=== PATIENT | male | born 1995 | race African-American/Black ===

== ENCOUNTER 2019-11-19 18:37 | Inpatient (IN) ==
[~2019-11-19 18:37] MED LIST: ETOMIDATE 2 MG/ML 20 ML VIAL IV ONE; NALOXONE HCL 0.4 MG/1 ML VIAL/CARP ONE; RAPID SEQUENCE INDUCTION BAG ONE; ROCURONIUM BROMIDE 10 MG/ML 5 ML VIAL IV ONE
[2019-11-19] MEDS ORDERED: NALOXONE HCL 0.4 MG/1 ML VIAL/CARP IV ONE (18:40)
[2019-11-19] MEDS ORDERED: ETOMIDATE 2 MG/ML 20 ML VIAL IV ONE (18:51)
[2019-11-19] MEDS ORDERED: PROPOFOL IV EMULSION 10 MG/ML 100 ML VIAL IV ONE (18:51)
[2019-11-19] MEDS ORDERED: ROCURONIUM BROMIDE 10 MG/ML 10 ML VIAL IV STA (18:51)
[2019-11-19] MEDS ORDERED: STAT IV Infusion **Titration per Protocol STA ×2 (18:51→22:50)
[2019-11-19] MEDS ORDERED: SODIUM CHLORIDE 0.9% 1000ML 1,000 ML IV SCH (19:00)
[2019-11-19 19:02] LABS: Basophils # (auto) 0.01 K/uL (0-0.2); Basophils % (auto) 0.1 %; Eosinophils # (auto) 0.01 K/uL (0-0.5); Eosinophils % (auto) 0.1 %; Hematocrit (blood only) 43.1 % (42-52); Hemoglobin 14.6 g/dL (14.0-18.0); Immature Granulocytes # (auto) 0.03 K/uL (0.00-0.02); Immature Granulocytes % (auto) 0.4 %; Lymphocytes # (auto) 1.15 K/uL (1.2-3.4); Lymphocytes % (auto) 13.6 %; Mean Corpuscular Hemoglobin 28.6 pg (25-34); Mean Corpuscular Hgb Conc 33.9 g/dL (32-36); Mean Corpuscular Volume 84.5 fL (80-100); Mean Platelet Volume 11.1 fL (7.4-10.4); Monocytes # (auto) 1.18 K/uL (0.11-0.59); Monocytes % (auto) 13.9 %; Neutrophils # (auto) 6.09 K/uL (1.4-6.5); Neutrophils % (auto) 71.9 %; Platelet Count 192 K/uL (130-400); White Blood Count 8.47 K/uL (4.8-10.8)
[2019-11-19] MEDS: propofoL 1,000 MG/100 ML VIAL IV SCH (19:05)
--- NOTE | 2019-11-19 19:05 | XRay Report ---
XR chest 1V portable CLINICAL HISTORY: post intubation tube position COMPARISON STUDY: No previous studies for comparison. FINDINGS: Endotracheal tube in position. This is 3.8 cm above the libia. Lungs are clear. Diaphragms are smooth. IMPRESSION: 1. Endotracheal tube 3.8 cm above the libia. 2. Lungs are clear. ACT 112: Negative or not required by law. The above report was generated using voice recognition software. It may contain grammatical, syntax or spelling errors. Electronically signed by: Harshil Arora M.D. 11/19/2019 7:03 PM
[2019-11-19 19:25] LABS: Alanine Aminotransferase 82 U/L (12-78); Albumin Level 3.9 gm/dl (3.4-5.0); Aspartate Aminotransferase 33 U/L (15-37); BUN Creatinine Ratio 10.3 (10-20); Blood Urea Nitrogen 11 mg/dl (7-18); Calcium 9.2 mg/dl (8.5-10.1); Carbon Dioxide 29 mmol/L (21-32); Chloride 100 mmol/L (98-107); Est GFR (African American) 112.5; Est GFR (Non-African American) 97.1; Glucose 114 mg/dl (70-99); Magnesium 1.8 mg/dl (1.8-2.4); Potassium 3.4 mmol/L (3.5-5.1); Sodium 135 mmol/L (136-145)
[2019-11-19 19:30] LABS: Albumin Globulin Ratio 0.9 (0.9-2); Alkaline Phosphatase 72 U/L (45-117); Bilirubin,Total 1.1 mg/dl (0.2-1); Globulin 4.4 gm/dl (2.5-4.0); Total Protein 8.3 gm/dl (6.4-8.2); Troponin I < 0.015 ng/ml (0-0.045)
[2019-11-19 19:38] LABS: Acetaminophen < 2 ug/ml (10-30)
[2019-11-19 19:39] LABS: Salicylate < 1.7 mg/dl (2.8-20)
[2019-11-19] MEDS ORDERED: POTASSIUM CHLORIDE / WTR 10 MEQ/100 ML PLCT IV ONE ×2 (19:42→22:50)
[2019-11-19] MEDS ORDERED: SODIUM CHLORIDE 0.9% 500 ML IV SCH (19:45)
[2019-11-19 19:47] LABS: Appearance Urine Clear (Clear); Bilirubin Urine Negative (Negative); Blood Urine Negative (Negative); Color Urine Yellow; Glucose Urine UA Negative (Negative); Ketones Urine Negative (Negative); Leukocyte Esterase Urine Negative (Negative); Nitrite Urine Negative (Negative); Protein Urine Negative (Negative); Specific Gravity Urine 1.011 (1.000-1.030); Urobilinogen Urine Negative (Negative); pH Urine 5.5 (4.5-7.5)
--- NOTE | 2019-11-19 19:59 | CT Scan Report ---
CT head/brain wo con CT DOSE: 884.08 mGy.cm HISTORY: Mental status change AMS, likely overdose TECHNIQUE: Multiaxial CT images of the head were performed without the use of intravenous contrast. A dose lowering technique was utilized adhering to the principles of ALARA. Comparison: None. Findings: Moderate edematous changes of the posterior oropharynx. The calvarium and skull base are in tact. The ventricles and sulci are within normal limits. There is no mass, hematoma, midline shift, o r acute infarct. No evidence for acute cranial hemorrhage. No evidence for midline shift. Impression: 1. No acute intracranial abnormality. 2. Soft tissue edematous change of the posterior oropharynx presumably secondary to the patient's int ubation procedure. ACT 112: Negative or not required by law. The above report was generated using voice recognition software. It may contain grammatical, syntax or spelling errors. Electronically signed by: Harshil Arora M.D. 11/19/2019 7:58 PM
[2019-11-19 20:15] LABS: Amphetamines+Metham, Urine Neg (Neg); Barbiturates, Urine Neg (Neg); Benzodiazepine, Urine Neg (Neg); Cocaine, Urine Neg (Neg); MDMA (Ecstacy), Urine Neg (Neg); Methadone, Urine Neg (Neg); Opiate, Urine Neg (Neg); Phencyclidine, Urine Neg (Neg)
[2019-11-19] MEDS ORDERED: AMPICILLIN/SULBACTAM SOD 3,000 MG in 0.9 % SODIUM CHLORIDE 100 ML IV STA (21:02)
[2019-11-19 21:09] LABS: Thyroid Stimulating Hormone 0.686 uIu/ml (0.300-4.500)
[2019-11-19 21:17] LABS: Base Excess ABG 1.4 mEq/L (-9-1.8); HCO3 ABG 29 mmol/L (19-24); Oxygen Saturation ABG 96.3 % (90-95); PCO2 ABG 61 mmHg (35-46); PO2 ABG 91 mmHg (80-95)
[2019-11-19 22:05] LABS: Allen Test Pos (Pos)
--- NOTE | 2019-11-19 22:15 | History & Physical Report ---
Date of Service November 19, 2019 Assessment & Plan (1) Acute hypoxemic respiratory failure: Secondary to drug overdose (unknown substance and intent) Bilateral rhonchi, possible aspiration pneumonitis Hypokalemia secondary to emesis Ongoing tobacco abuse ICU Baseline ABG Vent management Unasyn for possible aspiration pneumonitis, nebs RTC Replace potassium Query patient on intent of drug ingestion once extubated DVT prophylaxis. Lovenox subcu Full code Total critical care time was 35 minutes. Text document was generated using [employer] voice recognition software. It may contain grammatical or spelling errors. Kindly contact undersigned for clarification of any documentation item in question. History of Present Illness Chief Complaint: drug overdose Primary Care Provider: [facility] History obtained from ER provider and records. Limited history from patient secondary to intubated state. Medical history significant for ongoing tobacco abuse. This afternoon patient swallowed a bag of [facility] drug in [facility]. Patient subsequently noted to have emesis and was noted to be lethargic. No response to Narcan doses given by EMS and at the ER. Patient subsequently intubated at the ER for depressed respiration. Medical History as above Surgical History : I&D of left groin abscess Family History : Hypertension Personal/Social history : Ongoing tobacco abuse, current [facility] inmate Allergies Allergy/AdvReac Type Severity Reaction Status Date / Time No Known Allergies Allergy Verified 11/19/19 19:36 Home Medications Home Medications Medication Instructions Recorded Confirmed Type No Known Home Medications 11/19/19 11/19/19 History Past Med/Surg History Medical History No pertinent past medical history Surgical History No pertinent past surgical history Social History Preferred Language: Zimbabwean Communication Ability: Unable Freight Solicitor Required: No Beliefs That Will Affect Care: None Current Living Situation: Other Current Living Situation Comment: [facility] Other Information That Helps Us Care for You: No Feels Safe at Home: Yes Safety Concerns: Feels Safe At This Time Smoking Status: Unknown if ever smoked Review of Systems Review of Systems: Could not be reliably obtained Physical Exam Physical Exam: GENERAL: Obtunded , no respiratory distress SKIN: Normal color, warm HEENT: Mccleary palpebral conjunctivae, no ptosis, dry buccal mucosa, ET in place NECK : Supple, no tenderness CHEST : Bilateral rhonchi , no tenderness HEART : RRR, no obvious murmurs ABDOMEN: Some distention, nontender EXTREMITIES : No LE swelling/tenderness, no other conspicuous deformities noted NEUROLOGIC : Obtunded , no facial asymmetry, no other gross focality Results & Data Vital Signs (Past 12 Hours) Vital Signs Pulse Pulse Resp BP BP Pulse Ox 11/19/19 20:30 80 106/49 L 98 11/19/19 20:25 85 110/62 98 11/19/19 20:20 87 113/57 L 98 11/19/19 20:15 88 118/58 L 98 11/19/19 20:10 88 108/56 L 97 11/19/19 20:05 96 H 110/55 L 97 11/19/19 20:00 96 H 104/57 L 97 11/19/19 19:56 100 H 123/59 L 98 11/19/19 19:52 107 H 15 98 11/19/19 19:35 95 H 103/55 L 95 11/19/19 19:30 102 H 110/52 L 95 11/19/19 19:25 104 H 102/47 L 95 11/19/19 19:20 110 H 106/44 L 95 11/19/19 19:15 119 H 102/50 L 95 11/19/19 19:10 126 H 114/58 L 95 11/19/19 19:05 135 H 131/69 96 11/19/19 19:03 97 11/19/19 19:00 138 H 131/69 96 11/19/19 18:55 141 H 15 120/84 97 11/19/19 18:50 142 H 133/62 100 11/19/19 18:45 100 H 120 H 140/59 L 140/59 L 100 11/19/19 18:41 112 H 106/51 L 100 11/19/19 18:40 98 H 8 L 106/51 L [address] head: 1. No acute intracranial abnormality. 2. Soft tissue edematous change of the posterior oropharynx presumably secondary to the patient's intubation procedure. Chest x-ray : 1. Endotracheal tube 3.8 cm above the libia. 2. Lungs are clear. EKG as per my interpretation : Rate 115, sinus tachycardia, normal axis, incomplete RBBB, no ischemia
[2019-11-19] MEDS ORDERED: PROMETHAZINE HCL 12.5 MG in SODIUM CHLORIDE 0.9% 50 ML IV PRN (22:50)
[2019-11-19] MEDS ORDERED: ACETAMINOPHEN 1,000 MG/100 ML VIAL IV PRN (22:50)
[2019-11-19] MEDS ORDERED: propofoL 1,000 MG/100 ML VIAL IV SCH (22:50)
[2019-11-19] MEDS ORDERED: ICU PROTOCOL FOR HYPERGLYCEMIA PRN (22:50)
--- NOTE | 2019-11-19 22:59 | Critical Care Consultation ---
Date of Consultation November 19, 2019 Assessment & Plan (1) Admitted to intensive care unit: Reason Critically Ill: Unknown ingestion of substance resulting in obtunded state and respiratory failure requiring emergent endotracheal intubation. NEURO - * CAM ICU: POSITIVE * Sedation -propofol * Pain -fentanyl PRN CARDIAC/VASCULAR - * No history of cardiovascular disease. * Hemodynamically stable at this time. * EKG: Sinus tachycardia at [address]/T wave abnormalities noted. QTc 466 ms. * Monitor on telemetry. RESPIRATORY - * Acute respiratory failure with hypoxia: * Secondary to obtunded state from unknown substance injection. * Saturating well on minimal ventilator settings status post emergent endotracheal intubation. * Wean settings as tolerated. * A.m. ABG. * Aim for early extubation. GI/NUTRITION - * N.p.o. at this time. * OG tube in place. * Prophylaxis: Famotidine RENAL/LYTES - * Hypokalemia. Currently being replaced. * IVF: Normosol at 80 mL's per hour - * Nguyen in place - Strict I&Os. ENDO - * No history of diabetes or thyroid disease. * BSGs per unit protocol. ISS --> gtt per unit policy. HEME - * Stable H&H. ID - * Covered for aspiration pneumonia in the setting of vomiting and subsequent intubation. * Continue for now. LINES/IV ACCESS - * PIVs x2 * Nguyen * ET Tube DVT PROPHYLAXIS - * Lovenox * SCDs I have personally spent 35 minutes of critical care time in the direct management of this patient. This is a life/limb threatening event. This includes time spent evaluating patient, direct bedside care, chart review, placing orders, interpretation of diagnostic studies, discussion with consultants, patient, and family members, as well as other required patient management activities. This time is exclusive of all separately billable procedures, and teaching time and separate from and in addition to any other critical care service time. Thank you for allowing us to participate in the care of this patient. Please refer to my attending physician's documentation for any further recommendations. (2) Overdose: (3) Altered mental status: (4) Hypokalemia: (5) Acute hypoxemic respiratory failure: Supervising Physician Co-Signing Physician Notes I have personally evaluated and examined this patient. I agree with assessment and plan of Mario Sutton PA-C. During my evaluation the patient was alert and oriented and able to follow commands, he was promptly extubated. He was alert and oriented for 3 hours status post extubation. I discussed the case with the [facility] hospitalist and he is stable for discharge back to his facility. Tox screen was negative, if he ingested bath salts he is typically would not show up on drug screen, his vital signs are within normal limits which are reassuring that he is over the acute intoxication phase. I have personally spent 45 minutes of critical care time in the direct management of this patient. This is a life/limb threatening event. This includes time spent evaluating patient, direct bedside care, chart review, placing orders, interpretation of diagnostic studies, discussion with consultants, patient, and/or family members regarding treatment decisions, as well as other required patient management activities. This time is exclusive of all separately billable procedures, and teaching time and separate from and in addition to any other critical care service time. History of Present Illness Attending Physician: Amanda Bean DO History of Present Illness 24-year-old incarcerated -[place] male presenting after ingestion of unknown substance resulting in altered mental status, obtunded state, and snoring respirations requiring emergent endotracheal intubation in the emergency department. There was reports that the patient may have swallowed a "bag" of an unknown substance. Narcan was administered at the halfway facility without success. After intubation, the patient remained sedated with propofol and is awake and alert exam. History of present illness limited secondary to current state of intubation with sedation. Allergies Allergy/AdvReac Type Severity Reaction Status Date / Time No Known Allergies Allergy Verified 11/19/19 19:36 Home Medications Home Medications Medication Instructions Recorded Confirmed Type No Known Home Medications 11/19/19 11/19/19 History Patient History Medical History No pertinent past medical history Surgical History No pertinent past surgical history Social History Preferred Language: Korean Communication Ability: Unable Videotape Recording Engineer Required: No Beliefs That Will Affect Care: None Current Living Situation: Other Current Living Situation Comment: [facility] facility[facility] Other Information That Helps Us Care for You: No Feels Safe at Home: Yes Safety Concerns: Feels Safe At This Time Smoking Status: Unknown if ever smoked Review of Systems Review of Systems: Unobtainable due to endotracheal tube and Unobtainable due to reduced consciousness Physical Exam Physical Exam: VITAL SIGNS - Vital signs and nursing notes were reviewed. GENERAL - 24-year-old male appearing his stated age who is in no acute distress. Intubated and sedated. SKIN - Without rashes. HEAD - NC/AT. EYES - PERRL with EOMI bilaterally. Sclera anicteric. EARS - No deformities of external structures noted on gross examination bilaterally. NOSE - Midline and without cyanosis. No epistaxis or purulent drainage noted. MOUTH/OROPHARYNX - ET Tube in place. Without perioral cyanosis. Buccal mucosa pink and moist and without leukoplakia. NECK - Neck with FROM. Supple to palpation. No nuchal rigidity. LUNGS - Chest wall symmetric without accessory muscle use, intercostals retractions, or central cyanosis. Normal vesicular breath sounds CTA B/L. No wheezes, rales, or rhonchi appreciated. CARDIAC - RRR with S1/S2. No murmur, rubs, or gallops appreciated. ABDOMEN - Abdominal contour flat without pulsations or visible masses. BS normoactive all four quadrants. No tenderness, palpable masses, hepatosplenomegaly, or ascites noted. EXTREMITIES - No clubbing or peripheral cyanosis. No pretibial edema present. +3/5 radial, posterior tibial, and dorsalis pedis pulses palpated throughout. +5/5 strength noted in UE/LE bilaterally. NEUROLOGIC -no focal neurological deficits. Moves all extremities independently. Withdraws from painful stimuli. Awakens and nods yes/no appropriately. Results & Data ([facility]) Vital Signs (Past 12 Hours) Vital Signs Pulse Pulse Resp BP BP Pulse Ox 11/19/19 22:05 69 14 113/61 98 11/19/19 21:50 70 111/59 L 98 11/19/19 21:45 79 116/64 98 11/19/19 21:40 73 118/63 98 11/19/19 21:35 75 119/68 99 11/19/19 21:25 82 126/65 99 11/19/19 21:20 76 122/72 98 11/19/19 21:10 82 124/73 98 11/19/19 21:00 77 164/102 H 92 11/19/19 20:50 79 106/54 L 98 11/19/19 20:45 82 103/55 L 98 11/19/19 20:40 82 109/51 L 98 11/19/19 20:35 83 109/57 L 97 11/19/19 20:30 80 106/49 L 98 11/19/19 20:25 85 110/62 98 11/19/19 20:20 87 113/57 L 98 11/19/19 20:15 88 118/58 L 98 11/19/19 20:10 88 108/56 L 97 11/19/19 20:05 96 H 110/55 L 97 11/19/19 20:00 96 H 104/57 L 97 11/19/19 19:56 100 H 123/59 L 98 11/19/19 19:52 107 H 15 98 11/19/19 19:35 95 H 103/55 L 95 11/19/19 19:30 102 H 110/52 L 95 11/19/19 19:25 104 H 102/47 L 95 11/19/19 19:20 110 H 106/44 L 95 11/19/19 19:15 119 H 102/50 L 95 11/19/19 19:10 126 H 114/58 L 95 11/19/19 19:05 135 H 131/69 96 11/19/19 19:03 97 11/19/19 19:00 138 H 131/69 96 11/19/19 18:55 141 H 15 120/84 97 11/19/19 18:50 142 H 133/62 100 11/19/19 18:45 100 H 120 H 140/59 L 140/59 L 100 11/19/19 18:41 112 H 106/51 L 100 11/19/19 18:40 98 H 8 L 106/51 L 100 Coding Level of Care Code Critical Care 1st 30-74 mins Diagnoses Admitted to intensive care unit Z78.9 Overdose T50.902A Encounter type: initial encounter Injury intent: intentional self-harm Altered mental status R41.82 Altered mental status type: unspecified Hypokalemia E87.6 Acute hypoxemic respiratory failure J96.01 Time Spent (min) 35 (1) Overdose Encounter type: initial encounter Injury intent: intentional self-harm Qualified Code(s): T50.902A - Poisoning by unspecified drugs, medicaments and biological substances, intentional self-harm, initial encounter (2) Altered mental status Altered mental status type: unspecified Qualified Code(s): R41.82 - Altered mental status, unspecified
[2019-11-19] MEDS ORDERED: FAMOTIDINE 20 MG in SYRINGE 3 ML IV SCH (23:00)
[2019-11-19] MEDS: NORMOSOL-R 1,000 ML IV SCH (23:58)
[2019-11-19] MEDS ORDERED: fentaNYL citrate 100 MCG/2 ML VIAL IV PRN (23:59)
[2019-11-20] MEDS: PATIENT'S HEIGHT NEEDED SCH ×2 (00:27→00:29)
--- NOTE | 2019-11-20 01:05 | Emergency Department Note ---
Entered by Yovana Reddy acting as a scribe for Puneet Richardson MD History of Present Illness General Chief complaint: Overdose (Intentional) Stated complaint: OVERDOSE, UNRESP. Source: EMS History of Present Illness Provider complaint: overdose Onset (ago): hour(s) 1 Location: head Radiation: non-radiation Pain Consistency: + constant Quality: + other (drug overdose) Relieved By: + none Treatments prior to arrival: other (narcan) The patient is a 24 y/o male with no PMHx who presents to the ED w/ CC of constant overdose beginning an hour prior to arrival. The EMS report that it is believed the patient swallowed a balloon full of suboxone or K2. They state that the patient was given 1.6 mg of narcan prior to arrival and he vomited once. They note .8 of narcan [facility] and .8 IV in the ambulance. EMS report that the patient has not been able to constituently maintain his breathing. They note that the patient is in and out of consciousness but when he is conscious he was fighting them.The HPI and ROS are limitied secondary to patients condition. Home Medications Home Medications Medication Instructions Recorded Confirmed Type No Known Home Medications 11/19/19 11/19/19 History Allergies Allergy/AdvReac Type Severity Reaction Status Date / Time No Known Allergies Allergy Verified 11/19/19 19:36 Past Med/Surg History Medical History No pertinent past medical history Surgical History No pertinent past surgical history Social History Preferred Language: [place] Communication Ability: intubated Client Service Executive Required: No Beliefs That Will Affect Care: None Current Living Situation: Other Current Living Situation Comment: Correctional facility:[facility] Other Information That Helps Us Care for You: No Feels Safe at Home: Yes Safety Concerns: Feels Safe At This Time Smoking Status: Unknown if ever smoked Review of Systems HPI and ROS limited secondary to patients condition. Physical Exam Vital Signs Vital Signs - 24 hr 11/19/19 18:40 11/19/19 18:41 11/19/19 18:45 Pulse Rate 98 H 112 H 100 H Pulse Rate [Left Apical] 120 H Pulse Rate from SpO2 Sensor 111 H 100 H Respiratory Rate 8 L Respiratory Effort / Characteristics Mechanically Ventilated Respiratory Depth Shallow Blood Pressure 106/51 L 106/51 L 140/59 L Blood Pressure [Right Arm] 140/59 L Blood Pressure Mean 69 84 103 Blood Pressure Mean [Right Arm] 86 Pulse Oximetry 100 100 100 Oxygen Delivery Method Ambu-Bag Mechanical Vent Mechanical Vent Oxygen Flow Rate 15 Fraction of Inspired Oxygen 30 30 Sepsis Recent Fever Within 48 Hours No Sepsis Action Taken by Nursing No Action Required End-Tidal CO2 11/19/19 18:50 11/19/19 18:55 11/19/19 19:00 Pulse Rate 142 H 141 H 138 H Pulse Rate [Left Apical] Pulse Rate from SpO2 Sensor 141 H 141 H 138 H Respiratory Rate 15 Respiratory Effort / Characteristics Respiratory Depth Blood Pressure 133/62 120/84 131/69 Blood Pressure [Right Arm] Blood Pressure Mean 101 88 99 Blood Pressure Mean [Right Arm] Pulse Oximetry 100 97 96 Oxygen Delivery Method Mechanical Vent Mechanical Vent Mechanical Vent Oxygen Flow Rate Fraction of Inspired Oxygen 30 30 30 Sepsis Recent Fever Within 48 Hours Sepsis Action Taken by Nursing End-Tidal CO2 47 11/19/19 19:03 11/19/19 19:05 11/19/19 19:10 Pulse Rate 135 H 126 H Pulse Rate [Left Apical] Pulse Rate from SpO2 Sensor 134 H 126 H Respiratory Rate Respiratory Effort / Characteristics Respiratory Depth Blood Pressure 131/69 114/58 L Blood Pressure [Right Arm] Blood Pressure Mean 99 86 Blood Pressure Mean [Right Arm] Pulse Oximetry 97 96 95 Oxygen Delivery Method Mechanical Vent Mechanical Vent Mechanical Vent Oxygen Flow Rate Fraction of Inspired Oxygen 30 30 30 Sepsis Recent Fever Within 48 Hours Sepsis Action Taken by Nursing End-Tidal CO2 50 50 11/19/19 19:15 11/19/19 19:20 11/19/19 19:25 Pulse Rate 119 H 110 H 104 H Pulse Rate [Left Apical] Pulse Rate from SpO2 Sensor 119 H 110 H 104 H Respiratory Rate Respiratory Effort / Characteristics Respiratory Depth Blood Pressure 102/50 L 106/44 L 102/47 L Blood Pressure [Right Arm] Blood Pressure Mean 78 78 80 Blood Pressure Mean [Right Arm] Pulse Oximetry 95 95 95 Oxygen Delivery Method Mechanical Vent Mechanical Vent Mechanical Vent Oxygen Flow Rate Fraction of Inspired Oxygen 30 30 30 Sepsis Recent Fever Within 48 Hours Sepsis Action Taken by Nursing End-Tidal CO2 49 49 48 11/19/19 19:30 11/19/19 19:35 11/19/19 19:52 Pulse Rate 102 H 95 H 107 H Pulse Rate [Left Apical] Pulse Rate from SpO2 Sensor 102 H 95 H Respiratory Rate 15 Respiratory Effort / Characteristics Respiratory Depth Blood Pressure 110/52 L 103/55 L Blood Pressure [Right Arm] Blood Pressure Mean 77 81 Blood Pressure Mean [Right Arm] Pulse Oximetry 95 95 98 Oxygen Delivery Method Mechanical Vent Mechanical Vent Oxygen Flow Rate Fraction of Inspired Oxygen 30 30 30 Sepsis Recent Fever Within 48 Hours Sepsis Action Taken by Nursing End-Tidal CO2 47 47 42 11/19/19 19:56 11/19/19 20:00 11/19/19 20:05 Pulse Rate 100 H 96 H 96 H Pulse Rate [Left Apical] Pulse Rate from SpO2 Sensor 100 H 96 H 95 H Respiratory Rate Respiratory Effort / Characteristics Respiratory Depth Blood Pressure 123/59 L 104/57 L 110/55 L Blood Pressure [Right Arm] Blood Pressure Mean 80 87 80 Blood Pressure Mean [Right Arm] Pulse Oximetry 98 97 97 Oxygen Delivery Method Mechanical Vent Mechanical Vent Mechanical Vent Oxygen Flow Rate Fraction of Inspired Oxygen 30 30 30 Sepsis Recent Fever Within 48 Hours Sepsis Action Taken by Nursing End-Tidal CO2 46 46 46 11/19/19 20:10 11/19/19 20:15 11/19/19 20:20 Pulse Rate 88 88 87 Pulse Rate [Left Apical] Pulse Rate from SpO2 Sensor 88 87 87 Respiratory Rate Respiratory Effort / Characteristics Respiratory Depth Blood Pressure 108/56 L 118/58 L 113/57 L Blood Pressure [Right Arm] Blood Pressure Mean 79 86 78 Blood Pressure Mean [Right Arm] Pulse Oximetry 97 98 98 Oxygen Delivery Method Mechanical Vent Mechanical Vent Mechanical Vent Oxygen Flow Rate Fraction of Inspired Oxygen 30 30 30 Sepsis Recent Fever Within 48 Hours Sepsis Action Taken by Nursing End-Tidal CO2 45 46 46 11/19/19 20:25 11/19/19 20:30 11/19/19 20:35 Pulse Rate 85 80 83 Pulse Rate [Left Apical] Pulse Rate from SpO2 Sensor 86 80 82 Respiratory Rate Respiratory Effort / Characteristics Respiratory Depth Blood Pressure 110/62 106/49 L 109/57 L Blood Pressure [Right Arm] Blood Pressure Mean 80 79 84 Blood Pressure Mean [Right Arm] Pulse Oximetry 98 98 97 Oxygen Delivery Method Mechanical Vent Mechanical Vent Mechanical Vent Oxygen Flow Rate Fraction of Inspired Oxygen 30 30 30 Sepsis Recent Fever Within 48 Hours Sepsis Action Taken by Nursing End-Tidal CO2 46 45 47 11/19/19 20:40 11/19/19 20:45 11/19/19 20:50 Pulse Rate 82 82 79 Pulse Rate [Left Apical] Pulse Rate from SpO2 Sensor 81 82 79 Respiratory Rate Respiratory Effort / Characteristics Respiratory Depth Blood Pressure 109/51 L 103/55 L 106/54 L Blood Pressure [Right Arm] Blood Pressure Mean 76 83 85 Blood Pressure Mean [Right Arm] Pulse Oximetry 98 98 98 Oxygen Delivery Method Mechanical Vent Mechanical Vent Mechanical Vent Oxygen Flow Rate Fraction of Inspired Oxygen 30 30 30 Sepsis Recent Fever Within 48 Hours Sepsis Action Taken by Nursing End-Tidal CO2 46 46 46 11/19/19 21:00 Pulse Rate 77 Pulse Rate [Left Apical] Pulse Rate from SpO2 Sensor 76 Respiratory Rate Respiratory Effort / Characteristics Respiratory Depth Blood Pressure 164/102 H Blood Pressure [Right Arm] Blood Pressure Mean 124 Blood Pressure Mean [Right Arm] Pulse Oximetry 92 Oxygen Delivery Method Mechanical Vent Oxygen Flow Rate Fraction of Inspired Oxygen 30 Sepsis Recent Fever Within 48 Hours Sepsis Action Taken by Nursing End-Tidal CO2 56 GENERAL: Well appearing, well nourished, NAD, non-toxic. EYE EXAM: Normal conjunctiva. PERRL, no anisocoria and EOM's grossly intact w/o pain. OROPHARYNX: Moist mucus membranes. Grossly normal dentition. NECK: Supple, no nuchal rigidity, no adenopathy. No signs of meningismus. LUNGS: Clear to auscultation. Normal chest wall mechanics. HEART: NSR, no MRG. ABDOMEN: Abdomen soft, normo-active bowel sounds, no masses, no rebound or guarding. BACK: No CVA abnormalities. SKIN: No rashes and no bruising. UPPER EXTREMITIES: Upper extremities are grossly normal. LOWER EXTREMITIES: No pitting edema. NEURO EXAM: Occasionally responses to painful stimuli, spontaneous breaths on occasion. Stupored and unresponsive. Procedures Intubation Time out performed: Yes sedative: Etomidate Mg Given: 20 paralytic: Rocuronium Mg Given: 90 Laryngoscope: Coby ET Tube Size: 7.5 ET Tube Uncuffed: Yes Tube Secured Depth (cm): 25 Tube Secured Location: teeth Tube Placement Confirmation: visualized tube passing through cords, equal breath sounds bilaterally and no breath sounds over epigastrium Patient Tolerated Procedure: well Additional Comments: Initially performed direct laryngoscopy but was unable to visualize cords. The patient was bagged w/ BVM w/o any hypoxemia (never below 98%) and subsequently intubated w/ S4 LoPro w/o complication on first pass. Course Course 1834: Past medical records reviewed. The patient was evaluated in room A01. A complete history and physical exam was performed. 6: I placed an endotracheal tube on the patient. 1853: I spoke with poison control. Recommended getting additional lab work and supportive care. 1901: I looked at the chest x-ray and asked respiratory to advance the ET tube 1 cm. 1932: I checked on the patient he is sedated and intubated. His Vitals are stable. He is tolerating sedation well. 2034: I spoke with Dr. Hudson Hospitalist. He will evaluate for further management. Administered Medications Propofol (Diprivan) 1,000 mg in 100 mls @ 2.565 mls/hr IV .Q24H TIM; Protocol Stop: 11/22/19 18:59 Last Titration: 11/19/19 23:05 Dose: 15 mcg/kg/min, 7.7 mls/hr Documented by: [id number] Cosigned by: [id number] Titration: 11/19/19 21:27 Dose: 15 mcg/kg/min, 7.7 mls/hr Documented by: [id number] Admin: 11/19/19 19:05 Dose: 5 mcg/kg/min, 2.6 mls/hr Documented by: [id number] Cosigned by: [id number] Famotidine 20 mg/ Syringe 5 mls @ 2.5 mls/min IV Q12H TIM Stop: 12/19/19 22:59 Last Admin: 11/19/19 23:57 Dose: 2.5 mls/min Documented by: [id number] Parenteral Electrolytes (Normosol-R) 1,000 mls @ 80 mls/hr IV .[id number] TIM Stop: 12/19/19 22:49 Last Admin: 11/19/19 23:58 Dose: 80 mls/hr Documented by: [id number] Miscellaneous (Patient's Height And/Or Weight Needed) 1 ea N/A Q2H TIM Stop: 11/20/19 02:00 Last Admin: 11/20/19 00:29 Dose: Not Given Documented by: [id number] Admin: 11/20/19 00:27 Dose: Not Given Documented by: [id number] Discontinued Medications Etomidate (Amidate) 20 mg IV NOW ONE Stop: 11/19/19 18:52 Last Admin: 11/19/19 18:47 Dose: 20 mg Documented by: [id number] Sodium Chloride (Nss 1000ml) 1,000 mls @ 999 mls/hr IV .Q1H1M TIM Stop: 11/19/19 20:00 Last Infusion: 11/19/19 20:08 Dose: 0 mls/hr Documented by: [id number] Admin: 11/19/19 19:00 Dose: 999 mls/hr Documented by: [id number] Sodium Chloride (Nss) 500 mls @ 125 mls/hr IV .Q4H TIM Stop: 12/19/19 19:44 Last Infusion: 11/19/19 23:59 Dose: 0 mls/hr Documented by: [id number] Admin: 11/19/19 20:06 Dose: 125 mls/hr Documented by: [id number] Potassium Chloride (K Scott / Wtr) 10 meq in 100 mls @ 100 mls/hr IV ONE ONE Stop: 11/19/19 20:41 Last Infusion: 11/19/19 21:09 Dose: 0 mls/hr Documented by: [id number] Admin: 11/19/19 20:06 Dose: 100 mls/hr Documented by: [id number] Ampicillin Sodium/Sulbactam Sodium 3,000 mg/ Sodium Chloride 108 mls @ 200 mls/hr IV NOW STA Stop: 11/19/19 21:34 Last Infusion: 11/19/19 21:50 Dose: 0 mls/hr Documented by: [id number] Admin: 11/19/19 21:15 Dose: 200 mls/hr Documented by: [id number] Potassium Chloride (K Scott / Wtr) 10 meq in 100 mls @ 100 mls/hr IV ONE ONE Stop: 11/19/19 23:49 Last Admin: 11/19/19 23:57 Dose: 100 mls/hr Documented by: [id number] Miscellaneous () 1 ea N/A NOW STA Stop: 11/19/19 18:52 Last Admin: 11/19/19 20:07 Dose: Not Given Documented by: [id number] Miscellaneous () Confirm Administered Dose 1 ea .ROUTE .STK-MED ONE Stop: 11/19/19 18:35 Last Admin: 11/19/19 19:24 Dose: Not Given Documented by: [id number] Naloxone HCl (Narcan) Confirm Administered Dose 2 mg .ROUTE .STK-MED ONE Stop: 11/19/19 18:35 Last Admin: 11/19/19 19:11 Dose: Not Given Documented by: [id number] Naloxone HCl (Narcan) 1 mg IV ONE ONE Stop: 11/19/19 18:41 Last Admin: 11/19/19 18:43 Dose: 1 mg Documented by: [id number] Propofol (Diprivan) Confirm Administered Dose 1,000 mg IV .STK-MED ONE Stop: 11/19/19 18:52 Last Admin: 11/19/19 19:13 Dose: Not Given Documented by: [id number] Rocuronium [place] (Zemuron) 90 mg IV NOW STA Stop: 11/19/19 18:52 Last Admin: 11/19/19 18:45 Dose: 90 mg Documented by: [id number] Cosigned by: [id number] Critical Care Time Critical Care Time: Yes Total Critical Care Time: 82 I have personally spent 82 minutes of critical care time in the direct management of this patient. This includes bedside care, interpretation of diagnostic studies, and testing, discussion with consultants, patient, and family members, and other required patient management activities. This 82 minutes is in excess of all separately billable procedures. Medical Decision Making Differential Diagnosis Differential includes overdose on Tylenol/aspirin/ethanol, ethylene glycol, methanol, prescribed medications, not prescribe medications/street drugs, metabolic process, traumatic process. Medical Records Attestation: I reviewed the patient's medical records. Home Medications Current Medication List: was personally reviewed by me Laboratory Data Attestation: I reviewed the patient's lab results. Result diagrams: 11/19/19 18:54 11/19/19 18:54 Lab Results 11/19/19 11/19/19 11/19/19 Range/Units 18:54 18:54 18:54 WBC 8.47 (4.8-10.8) K/uL RBC 5.10 (4.7-6.1) M/uL Hgb 14.6 (14.0-18.0) g/dL Hct 43.1 (42-52) % MCV 84.5 (80-100) fL MCH 28.6 (25-34) pg MCHC 33.9 (32-36) g/dL RDW Std Deviation 40.0 (36.4-46.3) fL RDW Coeff of Harsh 13.0 (11.5-14.5) % Plt Count 192 (130-400) K/uL MPV 11.1 H (7.4-10.4) fL Immature Gran % (Auto) 0.4 % Neut % (Auto) 71.9 % Lymph % (Auto) 13.6 % Winkler % (Auto) 13.9 % Eos % (Auto) 0.1 % Baso % (Auto) 0.1 % Immature Gran # (Auto) 0.03 H (0.00-0.02) K/uL Neut # (Auto) 6.09 (1.4-6.5) K/uL Lymph # (Auto) 1.15 L (1.2-3.4) K/uL Winkler # (Auto) 1.18 H (0.11-0.59) K/uL Eos # (Auto) 0.01 (0-0.5) K/uL Baso # (Auto) 0.01 (0-0.2) K/uL ABG pH (7.35-7.45) ABG pCO2 (35-46) mmHg ABG pO2 (80-95) mmHg ABG HCO3 (19-24) mmol/L ABG O2 Saturation (90-95) % ABG Base Excess (-9-1.8) mEq/L Rj Test (Pos) Barometric Pressure mm/Hg Oxygen Given Sodium 135 L (136-145) mmol/L Potassium 3.4 L (3.5-5.1) mmol/L Chloride 100 (98-107) mmol/L Carbon Dioxide 29 (21-32) mmol/L Anion Gap 6.0 (3-11) BUN 11 (7-18) mg/dl Creatinine 1.06 (0.6-1.4) mg/dl Est Cr Clr Drug Dosing Not Reportable Est GFR ( Amer) 112.5 Est GFR (Non-Af Amer) 97.1 BUN/Creatinine Ratio 10.3 (10-20) Glucose 114 H (70-99) mg/dl Calcium 9.2 (8.5-10.1) mg/dl Magnesium 1.8 (1.8-2.4) mg/dl Total Bilirubin 1.1 H (0.2-1) mg/dl AST 33 (15-37) U/L ALT 82 H (12-78) U/L Alkaline Phosphatase 72 (45-117) U/L Troponin I < 0.015 (0-0.045) ng/ml Total Protein 8.3 H (6.4-8.2) gm/dl Albumin 3.9 (3.4-5.0) gm/dl Globulin 4.4 H (2.5-4.0) gm/dl Albumin/Globulin Ratio 0.9 (0.9-2) TSH 0.686 (0.300-4.500) uIu/ml Urine Color Urine Appearance (Clear) Urine pH (4.5-7.5) Ur Specific [place] (1.000-1.030) Urine Protein (Negative) Urine Glucose (UA) (Negative) Urine Ketones (Negative) Urine Blood (Negative) Urine Nitrite (Negative) Urine Bilirubin (Negative) Urine Urobilinogen (Negative) Ur Leukocyte Esterase (Negative) Salicylates < 1.7 L (2.8-20) mg/dl Urine Opiates Screen (Neg) Ur Methadone, Qual (Neg) Acetaminophen < 2 L (10-30) ug/ml Urine Barbiturates (Neg) Ur Phencyclidine (PCP) (Neg) U Amphetamin/Meth Scrn (Neg) MDMA (Ecstasy) Screen (Neg) U Benzodiazepines Scrn (Neg) Ur Cocaine Metabolite (Neg) U Marijuana (THC) Screen (Neg) Ethyl Alcohol mg/dL (0-3) mg/dl 11/19/19 11/19/19 11/19/19 Range/Units 19:14 19:15 19:15 WBC (4.8-10.8) K/uL RBC (4.7-6.1) M/uL Hgb (14.0-18.0) g/dL Hct (42-52) % MCV (80-100) fL MCH (25-34) pg MCHC (32-36) g/dL RDW Std Deviation (36.4-46.3) fL RDW Coeff of Harsh (11.5-14.5) % Plt Count (130-400) K/uL MPV (7.4-10.4) fL Immature Gran % (Auto) % Neut % (Auto) % Lymph % (Auto) % Winkler % (Auto) % Eos % (Auto) % Baso % (Auto) % Immature Gran # (Auto) (0.00-0.02) K/uL Neut # (Auto) (1.4-6.5) K/uL Lymph # (Auto) (1.2-3.4) K/uL Winkler # (Auto) (0.11-0.59) K/uL Eos # (Auto) (0-0.5) K/uL Baso # (Auto) (0-0.2) K/uL ABG pH (7.35-7.45) ABG pCO2 (35-46) mmHg ABG pO2 (80-95) mmHg ABG HCO3 (19-24) mmol/L ABG O2 Saturation (90-95) % ABG Base Excess (-9-1.8) mEq/L Rj Test (Pos) Barometric Pressure mm/Hg Oxygen Given Sodium (136-145) mmol/L Potassium (3.5-5.1) mmol/L Chloride (98-107) mmol/L Carbon Dioxide (21-32) mmol/L Anion Gap (3-11) BUN (7-18) mg/dl Creatinine (0.6-1.4) mg/dl Est Cr Clr Drug Dosing Est GFR ( Amer) Est GFR (Non-Af Amer) BUN/Creatinine Ratio (10-20) Glucose (70-99) mg/dl Calcium (8.5-10.1) mg/dl Magnesium (1.8-2.4) mg/dl Total Bilirubin (0.2-1) mg/dl AST (15-37) U/L ALT (12-78) U/L Alkaline Phosphatase (45-117) U/L Troponin I (0-0.045) ng/ml Total Protein (6.4-8.2) gm/dl Albumin (3.4-5.0) gm/dl Globulin (2.5-4.0) gm/dl Albumin/Globulin Ratio (0.9-2) TSH (0.300-4.500) uIu/ml Urine Color Yellow Urine Appearance Clear (Clear) Urine pH 5.5 (4.5-7.5) Ur Specific [place] 1.011 (1.000-1.030) Urine Protein Negative (Negative) Urine Glucose (UA) Negative (Negative) Urine Ketones Negative (Negative) Urine Blood Negative (Negative) Urine Nitrite Negative (Negative) Urine Bilirubin Negative (Negative) Urine Urobilinogen Negative (Negative) Ur Leukocyte Esterase Negative (Negative) Salicylates (2.8-20) mg/dl Urine Opiates Screen Neg (Neg) Ur Methadone, Qual Neg (Neg) Acetaminophen (10-30) ug/ml Urine Barbiturates Neg (Neg) Ur Phencyclidine (PCP) Neg (Neg) U Amphetamin/Meth Scrn Neg (Neg) MDMA (Ecstasy) Screen Neg (Neg) U Benzodiazepines Scrn Neg (Neg) Ur Cocaine Metabolite Neg (Neg) U Marijuana (THC) Screen Neg (Neg) Ethyl Alcohol mg/dL < 3.0 (0-3) mg/dl 11/19/19 Range/Units 21:04 WBC (4.8-10.8) K/uL RBC (4.7-6.1) M/uL Hgb (14.0-18.0) g/dL Hct (42-52) % MCV (80-100) fL MCH (25-34) pg MCHC (32-36) g/dL RDW Std Deviation (36.4-46.3) fL RDW Coeff of Harsh (11.5-14.5) % Plt Count (130-400) K/uL MPV (7.4-10.4) fL Immature Gran % (Auto) % Neut % (Auto) % Lymph % (Auto) % Winkler % (Auto) % Eos % (Auto) % Baso % (Auto) % Immature Gran # (Auto) (0.00-0.02) K/uL Neut # (Auto) (1.4-6.5) K/uL Lymph # (Auto) (1.2-3.4) K/uL Winkler # (Auto) (0.11-0.59) K/uL Eos # (Auto) (0-0.5) K/uL Baso # (Auto) (0-0.2) K/uL ABG pH 7.30 L (7.35-7.45) ABG pCO2 61 H (35-46) mmHg ABG pO2 91 (80-95) mmHg ABG HCO3 29 H (19-24) mmol/L ABG O2 Saturation 96.3 H (90-95) % ABG Base Excess 1.4 (-9-1.8) mEq/L Rj Test Pos (Pos) Barometric Pressure 719.4 mm/Hg Oxygen Given 15% Sodium (136-145) mmol/L Potassium (3.5-5.1) mmol/L Chloride (98-107) mmol/L Carbon Dioxide (21-32) mmol/L Anion Gap (3-11) BUN (7-18) mg/dl Creatinine (0.6-1.4) mg/dl Est Cr Clr Drug Dosing Est GFR ( Amer) Est GFR (Non-Af Amer) BUN/Creatinine Ratio (10-20) Glucose (70-99) mg/dl Calcium (8.5-10.1) mg/dl Magnesium (1.8-2.4) mg/dl Total Bilirubin (0.2-1) mg/dl AST (15-37) U/L ALT (12-78) U/L Alkaline Phosphatase (45-117) U/L Troponin I (0-0.045) ng/ml Total Protein (6.4-8.2) gm/dl Albumin (3.4-5.0) gm/dl Globulin (2.5-4.0) gm/dl Albumin/Globulin Ratio (0.9-2) TSH (0.300-4.500) uIu/ml Urine Color Urine Appearance (Clear) Urine pH (4.5-7.5) Ur Specific [place] (1.000-1.030) Urine Protein (Negative) Urine Glucose (UA) (Negative) Urine Ketones (Negative) Urine Blood (Negative) Urine Nitrite (Negative) Urine Bilirubin (Negative) Urine Urobilinogen (Negative) Ur Leukocyte Esterase (Negative) Salicylates (2.8-20) mg/dl Urine Opiates Screen (Neg) Ur Methadone, Qual (Neg) Acetaminophen (10-30) ug/ml Urine Barbiturates (Neg) Ur Phencyclidine (PCP) (Neg) U Amphetamin/Meth Scrn (Neg) MDMA (Ecstasy) Screen (Neg) U Benzodiazepines Scrn (Neg) Ur Cocaine Metabolite (Neg) U Marijuana (THC) Screen (Neg) Ethyl Alcohol mg/dL (0-3) mg/dl Imaging Data Radiologist's Impression: Radiology results as stated below per my review and the radiologist's interpretation: XR chest 1V portable CLINICAL HISTORY: post intubation tube position COMPARISON STUDY: No previous studies for comparison. FINDINGS: Endotracheal tube in position. This is 3.8 cm above the libia. Lungs are clear. Diaphragms are smooth. IMPRESSION: 1. Endotracheal tube 3.8 cm above the libia. 2. Lungs are clear. ACT 112: Negative or not required by law. The above report was generated using voice recognition software. It may contain grammatical, syntax or spelling errors. Electronically signed by: Harshil Arora M.D. 11/19/2019 7:[address] head/brain wo con CT DOSE: 884.08 mGy.cm HISTORY: Mental status change AMS, likely overdose TECHNIQUE: Multiaxial CT images of the head were performed without the use of intravenous contrast. A dose lowering technique was utilized adhering to the principles of ALARA. Comparison: None. Findings: Moderate edematous changes of the posterior oropharynx. The calvarium and skull base are intact. The ventricles and sulci are within normal limits. There is no mass, hematoma, midline shift, or acute infarct. No evidence for acute cranial hemorrhage. No evidence for midline shift. Impression: 1. No acute intracranial abnormality. 2. Soft tissue edematous change of the posterior oropharynx presumably secondary to the patient's intubation procedure. ACT 112: Negative or not required by law. The above report was generated using voice recognition software. It may contain grammatical, syntax or spelling errors. Electronically signed by: Harshil Arora M.D. 11/19/2019 7:58 PM ECG Data Attestation: I personally reviewed and interpreted this ECG as follows: Indication: + altered mental status Rate (beats per minute): 112 ECG [place] Burn: + Normal ECG ST segments: no ST depression, no ST elevation and no T-wave inversions ECG Findings: + Other (Normal intervals) Blood Pressure Blood Pressure Findings: Normal blood pressure MDM Narrative The patient is a 24 y/o male with no PMHx who presents to the ED w/ CC of constant overdose beginning an hour prior to arrival. Patient was seen and evaluated the bedside. Patient presented here from [facility] due to concern for altered mental unresponsiveness. Patient reportedly had swallowed some sort of substance Sunday and then had a recurrence of try to swallow something today. The patient was given several rounds of Narcan prior to arrival with intermittent change in symptoms. The patient does respond occasionally to painful stimuli but is dyspneic. The patient is stuporous and otherwise does not respond to any verbal stimuli. The patient was trialed with some additional Narcan but the patient remained per dip neck. The decision was made to intubate the patient. I was unable to visualize the cords initially after the patient did receive paralytics. Patient was back successively. The patient had no episodes of hypoxia. The patient was subsequently intubated using video laryngoscopy with first-pass success with 7.5 ET tube 25 at the teeth. Bilateral breath sounds were heard. The patient did have blood work completed IV fluids were ordered along with a sedative. CT of the head was also pending along with an EKG Nguyen placement UDS and tox urine. I did speak with the poison control who recommended supportive care EKG and additional coingestions laboratory work. Patient's blood work is unremarkable. The patient did have trace elevations in ALT and T bili at 1.1. Tylenol level is undetectable. Patient was subsequently admitted to the medicine service and intensive care unit as the patient was intubated and sedated. Impression & Plan Overdose, Altered mental status, Hypokalemia Discharge Plan Visit Data *Final* Discharge Date/Time: 11/19/19 22:05 Chief Complaint: Overdose (Intentional) Stated Complaint: OVERDOSE, UNRESP. ED Provider: Puneet Richardson Discharge Problem: Overdose, Altered mental status, Hypokalemia Patient Disposition: Admitted As Inpatient Discharge Instructions Interventions: ED Discharge Assessment Last Done: 11/19/19 22:05 Discharge Problem: Overdose Qualifiers: Encounter type: initial encounter Injury intent: intentional self-harm Qualified Code(s): T50.902A - Poisoning by unspecified drugs, medicaments and biological substances, intentional self-harm, initial encounter Altered mental status Qualifiers: Altered mental status type: unspecified Qualified Code(s): R41.82 - Altered mental status, unspecified The scribe's documentation has been prepared under my direction and personally reviewed by me in its entirety. I confirm that the note above accurately reflects all work, treatment, procedures, and medical decision making performed by me.
[2019-11-20] MEDS: IPRATROPIUM BROMIDE HFA INHALER INH SCH ×3 (01:20→10:52)
[2019-11-20] MEDS: LEVALBUTEROL TARTRATE 15 GM HFA.AER.AD INH SCH ×4 (01:20→10:52)
[2019-11-20] MEDS ORDERED: AMPICILLIN/SULBACTAM CONSULT ACTIVE PRN (01:30)
[2019-11-20] MEDS: AMPICILLIN/SULBACTAM SOD 3,000 MG in 0.9 % SODIUM CHLORIDE 100 ML IV SCH ×2 (03:00→08:10)
[2019-11-20 05:10] LABS: Basophils # (auto) 0.01 K/uL (0-0.2); Basophils % (auto) 0.1 %; Eosinophils # (auto) 0.02 K/uL (0-0.5); Eosinophils % (auto) 0.3 %; Hematocrit (blood only) 44.4 % (42-52); Hemoglobin 14.7 g/dL (14.0-18.0); Immature Granulocytes # (auto) 0.01 K/uL (0.00-0.02); Immature Granulocytes % (auto) 0.1 %; Lymphocytes # (auto) 1.93 K/uL (1.2-3.4); Lymphocytes % (auto) 27.4 %; Mean Corpuscular Hemoglobin 27.9 pg (25-34); Mean Corpuscular Hgb Conc 33.1 g/dL (32-36); Mean Corpuscular Volume 84.3 fL (80-100); Mean Platelet Volume 11.2 fL (7.4-10.4); Monocytes # (auto) 1.05 K/uL (0.11-0.59); Monocytes % (auto) 14.9 %; Neutrophils # (auto) 4.03 K/uL (1.4-6.5); Neutrophils % (auto) 57.2 %; Platelet Count 177 K/uL (130-400); RDW Coefficient of Variation 13.2 % (11.5-14.5); RDW Standard Deviation 40.4 fL (36.4-46.3); Red Blood Count 5.27 M/uL (4.7-6.1); White Blood Count 7.05 K/uL (4.8-10.8)
[2019-11-20 05:47] LABS: Albumin Level 3.8 gm/dl (3.4-5.0); BUN Creatinine Ratio 10.7 (10-20); Bilirubin Direct 0.2 mg/dl (0-0.2); Calcium 9.1 mg/dl (8.5-10.1); Creatinine Clr Calc Pharmacy 129.1 ml/min; Est GFR (African American) 126.8; Est GFR (Non-African American) 109.4; Magnesium 1.9 mg/dl (1.8-2.4); Potassium 3.6 mmol/L (3.5-5.1)
[2019-11-20 06:04] LABS: Bilirubin,Total 1.9 mg/dl (0.2-1); Phosphorus 1.6 mg/dl (2.5-4.9)
[2019-11-20 06:05] LABS: Allen Test Pos (Pos); Base Excess ABG 5.6 mEq/L (-9-1.8); HCO3 ABG 27 mmol/L (19-24); PCO2 ABG 30 mmHg (35-46); PO2 ABG 96 mmHg (80-95)
[2019-11-20 06:11] LABS: pH ABG 7.57 (7.35-7.45)
[2019-11-20] MEDS: propofoL 1,000 MG/100 ML VIAL IV SCH (06:26)
[2019-11-20] MEDS ORDERED: POTASSIUM PHOS 3 MMOL/1 ML INFUSION IV STA (06:28)
[2019-11-20] MEDS ORDERED: POTASSIUM PHOSPHATE 21 MMOL in SODIUM CHLORIDE 0.9% 500 ML IV SCH (07:00)
--- NOTE | 2019-11-20 07:19 | Critical Care Progress Note ---
Date of Service November 20, 2019 Assessment & Plan (1) Admitted to intensive care unit: Reason Critically Ill: Unknown ingestion of substance resulting in obtunded state and respiratory failure requiring emergent endotracheal intubation. 24 hr events: Sedation was weaned and patient was extubated. He is maintaining good oxygen saturation on room air. Nguyen and OG tubes removed. Patient appears to be medically stable and suitable for discharge. Neuro: [facility] ICU: negative * Overdose: urine tox negative on admission. per correction, he swallowed a bag containing powder. suspicion is that it was "k2," a synthetic compound not included on routine drug tests. - no longer sedated - Head CT showed no acute intracranial process. Cardiac: - hemodynamically stable. no underlying cardiovascular issues Respiratory: * Acute hypoxemic respiratory failure - resolved. Patient has been extubated and is saturating well on room air. likely secondary to overdose of medication causing diminished respiratory drive. - there was some initial concern for aspiration and patient was stated on Unasyn on admission. CXR today showing no evidence of focal consolidation. GI: * patient was only intubated < 12 hours; will order full diet - LFTS normal, T bili slightly elevated to 1.9. - stress ulcer ppx discontinued as patient was only ventilated for 12 hrs. no other risk factors. RENAL/LYTES: * Cr normal * phosphors low at 1.6. replacement ordered; will repeat electrolyte panel + mag and phos at noon today : * Nguyen removed. ENDO: - TSH normal - no underlying diabetes; ICU hyperglycemia protocol HEME: - CBC normal; no issues ID: - Nasal MRSA swab negative - initial concern for aspiration PNA. patient was started on Unasyn on admission. CXR today showing no evidence of focal consolidation. WBC normal. Patient afebrile. d/c unasyn LINES/IV ACCESS: * PIV x2 CODE STATUS: Full DVT PROPHYLAXIS: Lovenox 40mg, SQ, daily Thank you for allowing us to participate in the care of this patient. Please refer to my attending physician's documentation for any further recommendations. Admission and Anticipated Discharge Date Admission Date: November 19, 2019 Supervising Physician Co-Signing Physician Notes Dr. Helton was resident physician during care of patient. I separately evaluated patient for mohan portions of the history and the exam. I was present during the critical portion of medical decision making, and I discussed the case with the resident. I generally agree with the findings and plan. Please refer to my documentation contained within Mario Sutton's note Subjective Patient in ICU. Two guards present in room. Denies being in any discomfort. Says he is hungry. He recalls being in his correction cell last night and feeling weak - he reports having to ask a cell mate to help him stand up because he could not do so on his own. He denies other symptoms. He denies taking any medications or drugs. Review of Systems Review of Systems: All systems reviewed & are unremarkable except as noted in HPI & below Physical Exam Constitutional: WD/WN, vitals as above Bilateral upper and lower extremities handcuffed to bed Eyes: + anicteric sclerae ENMT: external ear and nose normal, oropharynx normal Neck: normal visual inspection and trachea midline Respiratory: normal respiratory effort, lungs clear to auscultation Auscultation: no crackles, no rales, no rhonchi, no wheezes and no pleural rub Cardiovascular: RRR, no murmur, no edema Heart Sounds: normal S1 and normal S2 Gastrointestinal (Abdomen): normal bowel sounds, soft, nontender, no hepatosplenomegaly Skin: no rashes, warm and dry Neurologic: CN's II-XI intact bilaterally and awake; no focal motor deficits and not confused Motor/Sensory: no tremor and no pronator drift Cranial Nerves: EOM intact bilaterally, normal facial strength, tongue midline, normal hearing, able to elevate shoulders bilaterally and no nystagmus Coordination: normal [id number] test Follows one step commands Psychiatric: A+Ox3, euthymic affect Results & Data ([facility]) Vital Signs (Past 12 Hours) Vital Signs Temp Pulse Pulse Resp BP BP Pulse Ox 11/20/19 06:00 68 20 114/56 L 98 11/20/19 05:32 66 20 100 11/20/19 05:00 70 20 115/62 99 11/20/19 04:00 69 20 115/62 99 11/20/19 03:00 69 20 137/69 98 11/20/19 02:48 77 20 100 11/20/19 02:00 60 20 116/69 98 11/20/19 01:00 64 20 112/71 100 11/20/19 00:00 36.4 C L 68 20 110/69 11/19/19 23:00 36.4 C L 67 16 110/69 98 11/19/19 22:30 74 20 100 11/19/19 22:22 36.4 C L 74 18 133/89 100 11/19/19 22:05 69 14 113/61 98 11/19/19 21:50 70 111/59 L 98 11/19/19 21:45 79 116/64 98 11/19/19 21:40 73 118/63 98 11/19/19 21:35 75 119/68 99 11/19/19 21:25 82 126/65 99 11/19/19 21:20 76 122/72 98 11/19/19 21:10 82 124/73 98 11/19/19 21:00 77 164/102 H 92 11/19/19 20:50 79 106/54 L 98 11/19/19 20:45 82 103/55 L 98 11/19/19 20:40 82 109/51 L 98 11/19/19 20:35 83 109/57 L 97 11/19/19 20:30 80 106/49 L 98 11/19/19 20:25 85 110/62 98 11/19/19 20:20 87 113/57 L 98 11/19/19 20:15 88 118/58 L 98 11/19/19 20:10 88 108/56 L 97 11/19/19 20:05 96 H 110/55 L 97 11/19/19 20:00 96 H 104/57 L 97 11/19/19 19:56 100 H 123/59 L 98 11/19/19 19:52 107 H 15 98 11/19/19 19:35 95 H 103/55 L 95 11/19/19 19:30 102 H 110/52 L 95 11/19/19 19:25 104 H 102/47 L 95 11/19/19 19:20 110 H 106/44 L 95 Resident Activity Tracking Resident Involvement: Resident Care Provided Care Provided: Adult Hospital Medicine
--- NOTE | 2019-11-20 07:31 | XRay Report ---
XR chest 1V portable CLINICAL HISTORY: Overdose. Intubated patient. COMPARISON STUDY: 11/19/2019 FINDINGS: The endotracheal tube is positioned 39 mm above the libia. There has been interval placeme nt of a nasogastric tube which passes into the stomach. There is no focal pulmonary consolidation. Th ere is no failure. There are no pleural effusions. The heart is normal in size.[ IMPRESSION: 1. No evidence of focal pulmonary consolidation 2. Endotracheal tube 39 mm above the libia 3. Interval placement of a nasogastric tube ACT 112: Negative or not required by law. Electronically signed by: James Thomas M.D. 11/20/2019 7:29 AM
[2019-11-20] MEDS ORDERED: ENOXAPARIN INJ 40 MG/0.4 ML SYR SQ SCH (09:00)
[2019-11-20] MEDS: NORMOSOL-R 1,000 ML IV SCH (12:01)
[2019-11-20 12:57] LABS: Potassium 4.3 mmol/L (3.5-5.1)
[2019-11-20 13:07] LABS: Magnesium 2.1 mg/dl (1.8-2.4); Phosphorus 3.4 mg/dl (2.5-4.9)
--- NOTE | 2019-11-20 13:49 | Hospitalist Progress Note ---
Date of Service November 20, 2019 Assessment & Plan (1) Acute hypoxemic respiratory failure: Unasyn for possible aspiration pneumonitis. Remains intubated for airway protection. Management per ICU team. (2) Toxic encephalopathy: uncertain substance ingested. Possibly K2? which is available in jails. Check CK, U tox normal. Cont telemetry monitoring. Trop negative. Supportive care. (3) Hypokalemia: Replace and repeat per ICU team. (4) Smoker: Will need to advise to quit once encephalopathy resolves. (5) DVT prophylaxis: Lovenox Full Code Dispo-cont ICU care [facility] Admission and Anticipated Discharge Date Admission Date: November 19, 2019 Results & Data ([facility]) Vital Signs (Past 12 Hours) Vital Signs Temp Pulse Pulse Resp BP BP Pulse Ox 11/20/19 12:00 90 92 11/20/19 11:30 69 102/49 L 95 11/20/19 11:00 68 91 11/20/19 10:30 67 103/46 L 99 11/20/19 10:00 70 100 11/20/19 09:31 76 100 11/20/19 09:29 76 117/67 100 11/20/19 09:00 74 100 11/20/19 08:50 78 19 100 11/20/19 08:31 65 100 11/20/19 08:29 67 113/70 100 11/20/19 08:15 68 20 100 11/20/19 08:00 37.0 C 64 100 11/20/19 07:31 67 100 11/20/19 07:29 66 109/57 L 100 11/20/19 07:00 76 100 11/20/19 06:00 68 20 114/56 L 98 11/20/19 05:32 66 20 100 11/20/19 05:00 70 20 115/62 99 11/20/19 04:00 69 20 115/62 99 11/20/19 03:00 69 20 137/69 98 11/20/19 02:48 77 20 100 11/20/19 02:00 60 20 116/69 98 Laboratory Results Short CBC 11/19/19 11/20/19 Range/Units 18:54 04:37 WBC 8.47 7.05 (4.8-10.8) K/uL Hgb 14.6 14.7 (14.0-18.0) g/dL Hct 43.1 44.4 (42-52) % Plt Count 192 177 (130-400) K/uL BMP 11/19/19 11/20/19 11/20/19 18:54 04:37 12:23 Sodium 135 L 139 139 Potassium 3.4 L 3.6 4.3 D Chloride 100 105 105 Carbon Dioxide 29 29 28 BUN 11 10 Creatinine 1.06 0.96 Glucose 114 H 71 Calcium 9.2 9.1 Cardiac Enzymes 11/19/19 11/20/19 Range/Units 18:54 04:37 Total Creatine Kinase 644 H (39-308) U/L Troponin I < 0.015 (0-0.045) ng/ml Liver Function 11/19/19 11/20/19 Range/Units 18:54 04:37 Total Bilirubin 1.1 H 1.9 H D (0.2-1) mg/dl Direct Bilirubin 0.2 (0-0.2) mg/dl AST 33 31 (15-37) U/L ALT 82 H 73 (12-78) U/L Alkaline Phosphatase 72 71 (45-117) U/L Albumin 3.9 3.8 (3.4-5.0) gm/dl Urine 11/19/19 Range/Units 19:15 Urine Color Yellow Urine Appearance Clear (Clear) Urine pH 5.5 (4.5-7.5) Ur Specific [place] 1.011 (1.000-1.030) Urine Protein Negative (Negative) Urine Glucose (UA) Negative (Negative) Diagnostic Findings XR chest 1V portable FINDINGS: The endotracheal tube is positioned 39 mm above the libia. There has been interval placement of a nasogastric tube which passes into the stomach. There is no focal pulmonary consolidation. There is no failure. There are no pleural effusions. The heart is normal in size.[ IMPRESSION: 1. No evidence of focal pulmonary consolidation 2. Endotracheal tube 39 mm above the libia 3. Interval placement of a nasogastric tube Medications Administered Current Inpatient Medications Enoxaparin Sodium (Lovenox) 40 mg SQ QAM [facility] Stop: 12/20/19 08:59 Last Admin: 11/20/19 08:10 Dose: 40 mg Documented by: Fentanyl Citrate (Fentanyl Citrate) 50 mcg IV Q2H PRN PRN Reason: Moderate Pain (4,5,6) Stop: 12/03/19 23:58 Parenteral Electrolytes (Normosol-R) 1,000 mls @ 80 mls/hr IV .[id number] TIM Stop: 12/19/19 22:49 Last Admin: 11/20/19 12:01 Dose: 80 mls/hr Documented by: Promethazine HCl 12.5 mg/ (Sodium Chloride) 50.5 mls @ 202 mls/hr IV Q6H PRN PRN Reason: Nausea And Vomiting Stop: 12/19/19 22:49 Acetaminophen (Ofirmev) 1,000 mg in 100 mls @ 400 mls/hr IV Q8H PRN PRN Reason: fever/pain Stop: 11/22/19 22:49 Miscellaneous (Icu Protocol For Hyperglycemia) 1 ea N/A PRN PRN; Protocol PRN Reason: Hyperglycemia Protocol Stop: 11/21/19 22:49
--- NOTE | 2019-11-20 16:59 | Discharge Summary ---
Date of Service November 20, 2019 Admission HPI Per Admitting Provider History obtained from ER provider and records. Limited history from patient secondary to intubated state. Medical history significant for ongoing tobacco abuse. This afternoon patient swallowed a bag of unknown drug in shelter. Patient subsequently noted to have emesis and was noted to be lethargic. No response to Narcan doses given by EMS and at the ER. Patient subsequently intubated at the ER for depressed respiration. Medical History as above Surgical History : I&D of left groin abscess Family History : Hypertension Personal/Social history : Ongoing tobacco abuse, current shelter inmate Admission Exam Per Admitting Provider GENERAL: Obtunded , no respiratory distress SKIN: Normal color, warm HEENT: [place] palpebral conjunctivae, no ptosis, dry buccal mucosa, ET in place NECK : Supple, no tenderness CHEST : Bilateral rhonchi , no tenderness HEART : RRR, no obvious murmurs ABDOMEN: Some distention, nontender EXTREMITIES : No LE swelling/tenderness, no other conspicuous deformities noted NEUROLOGIC : Obtunded , no facial asymmetry, no other gross focality Principal Diagnosis Acute respiratory failure-resolved Toxic encephalopathy 2/2 toxic ingestion of uncertain substance-resolved Discharge Exam CONSTITUTIONAL: WNWD, vitals as above, generally well-appearing EYES: EOMI bilaterally, PERRL, normal conjunctivae, no scleral icterus ENT: external ear and nose normal, oropharynx clear, MMM RESPIRATORY: clear to auscultation bilaterally, no crackles, rales or wheezes, normal respiratory effort CARDIOVASCULAR: regular rate and rhythm, S1 and 2 heard without murmurs, gallops or rubs, no JVD, no peripheral edema GASTROINTESTINAL: soft, nontender, nondistended MUSCULOSKELETAL: strength 5/5 throughout, head is normocephalic and atraumatic SKIN: warm and dry NEUROLOGIC: PERRL, EOMI, no facial palsy, no dysarthria. Touch, pain and proprioception normal. CN 2-12 grossly intact, no sensory deficit, normal cognition, normal speech, no tremor PSYCHIATRIC: alert cooperative and oriented to person, place and time. Discharge Data Allergies Allergy/AdvReac Type Severity Reaction Status Date / Time No Known Allergies Allergy Verified 11/19/19 19:36 Consultations 11/19/19 21:13 ED Decision to Admit Stat 11/19/19 22:50 Consult Case Management - Discharge Planning Routine Consult Supervisor Cereal Routine Ordered Studies 11/19/19 18:52 CT head/brain wo con Stat Hospital Course (1) Acute hypoxemic respiratory failure: (2) Toxic encephalopathy: 24-year-old incarcerated male presented to the ER via EMS from shelter. Per the notes, the EMS report included a history of possible ingestion of Suboxone or K2. The patient had been given 1.6 mg of Narcan prior to arrival and had vomited once. An additional 0.8 mg of Narcan had been given at the shelter nasally and another 0.8 IV in the ambulance. Upon arrival patient was in and out of consciousness and not able to consistently maintain his breathing, therefore, he was intubated and placed in the ICU. A CT of the head revealed no acute intracranial abnormality. Unasyn was started for possible aspiration pn eumonitis. IV fluids were given. The following day he was extubated and per the butane compressor operator with a negative tox screen, ingestion of bath salts was a possibility. A chest x-ray revealed no evidence of pulmonary infiltrates and patient was clinically well, inconsistent with pneumonia, therefore Unasyn was stopped and antibiotics were not continued. However, as he was neurologically intact, awake and oriented and tolerating p.o., he was clearly over the acute intoxication phase. He was mentating and ambulating at baseline and sent home in stable condition to the present. He adamantly denied any ingestion causing this. Total Time Total Time Spent Total Time Spent (In Minutes): 60 Total Time Includes: Examination of the Patient, Discharge Planning, Medication Reconciliation and Communication With Other Providers Discharge Plan Discharge Items Patient Disposition: [facility] Reason For Visit: RESP FAILURE Discharge Diagnosis: Acute respiratory failure-resolved Toxic encephalopathy 2/2 toxic ingestion of uncertain substance-resolved Condition on Discharge: Good Activity: Resume your previous activity Non-emergency contact: Primary Care Provider Call non-emergency contact if: you have any medication questions, your symptoms worsen, your pain is not controlled and you have a fever Follow-up/Referrals: Cooper LUCIANO [Primary Care Provider] - Diet: Regular Addtl Attending Provider Instructions: It is recommended that you follow-up with your primary care provider within one week of discharge from the hospital to ensure you are doing well. It is strongly recommended that you quit smoking as it is bad for your health. Pending Studies at Discharge: No Stand-Alone Forms: [facility], Suicide Prevention Resources Skilled Items Patient informed of condition?: Yes Discharge Level of Care: Other Communicable Disease: No Discharge Prognosis: Stable Lines: None Urinary Catheter: No Medications and DC Order Prescriptions: Continued No Known Home Medications RF: 0 Discharge Orders: Discharge Order (Routine); Ordered 11/20/19 Ordered By: Amanda Bean Admission Data Admit Date/Time: 11/19/19 21:07 Attending Provider: Amanda Bean Admit Provider: Alberto Proctor Primary Care Provider: Cooper LUCIANO Other Providers: Alberto Proctor ; William Sherman Other Interventions: Discharge Summary Assessment (RN) Last Done: 11/20/19 17:04 DC Date/Time DO NOT enter until pt leaves facility: 11/20/19 18:05
--- NOTE | 2019-11-20 18:55 | Electrocardiogram Report ---
Test Reason : Blood Pressure : / mmHG Vent. Rate : 112 BPM Atrial Rate : 112 BPM P-R Int : 142 ms QRS Dur : 088 ms QT Int : 342 ms P-R-T Axes : 062 075 046 degrees QTc Int : 466 ms Sinus tachycardia Otherwise normal ECG No previous ECGs available Confirmed by Loco Barrera ([id number]) on 11/20/2019 6:55:28 PM Referred By: Cooper SCI Confirmed By:Lyndon Barrera
== END 2019-11-20 18:05 | DRG 917 ==
LOC: ED 18:37 → 1E 21:07